=== PATIENT | female | born 1975 ===

== ENCOUNTER 2017-09-21 13:44 | Outpatient (REF) | payer MEDICAID, SELFPAY ==
[2017-09-21 21:54] LABS: Anion Gap 14.4 mmol/L (3-11); BUN 5 mg/dL (7-18); CO2 24.6 mmol/L (21.0-32.0); Calcium 9.3 mg/dL (8.5-10.1); Chloride 103 mmol/L (98-107); Glucose 96 mg/dL (70-100); Potassium 3.5 mmol/L (3.5-5.1); Sodium 142 mmol/L (136-145)
[2017-09-21 22:09] LABS: Bilirubin Negative (Negative); Blood Trace-lysed (Negative); Clarity Clear; Glucose Negative (Negative); Ketones Trace mg/dL (Negative); Leukocyte Esterase Negative (Negative); Nitrite Negative (Negative); Specific Gravity >= 1.030 (1.005-1.025); Urobilinogen 0.2 EU/dL (Up TO 0.2)
[2017-09-21 22:30] LABS: Bacteria Negative HPF (Negative); Epithelial Cells Many HPF (Negative); RBC Negative (0-2); WBC Negative HPF (0-5)
[2017-09-21 22:31] LABS: C & S Indicated? No; Casts Negative LPF (Negative); Mucus Negative (Negative)
== END 2017-09-21 13:45 ==
LOC: NCHCN 13:44
PROVIDERS: PCP Family Medicine; Visit Provider Family Medicine
DX: Z00.01 Encounter for general adult medical examination with abnormal findings (principal); R79.9 Abnormal finding of blood chemistry, unspecified
CPT/HCPCS: 80048; 81003; 81015

== ENCOUNTER 2017-09-23 22:18 | Outpatient (REF) | payer MEDICAID, SELFPAY ==
[2017-09-23 22:46] LABS: Abs Immature Grans 0.03 k/cumm (0.0-0.09); Absolute Basophil Count 0.03 k/cumm (0.0-0.2); Absolute Eosinophil Count 0.14 k/cumm (0.0-0.7); Absolute Lymphocyte Count 2.17 k/cumm (1.2-3.4); Absolute Monocyte Count 0.47 k/cumm (0.11-0.7); Absolute Neutrophil Count 5.19 k/cumm (1.2-6.7); Basophils % 0.4; Eosinophils % 1.7; HCT 37.5 % (36.0-46.0); HGB 12.7 g/dL (12.0-15.5); Immature Grans % 0.4; Mean Corp. HGB Concentration 33.9 g/dL (32.0-36.0); Mean Corpuscular Hemoglobin 34.2 pg (27.0-33.0); Mean Corpuscular Volume 101.1 fL (80-95); Monocytes % 5.9; Neutrophils % 64.6; Platelet Count 225 x1000/uL (130-400); RBC 3.71 m/cumm (4.00-5.20); RBC Distribution Width 13.8 % (11.7-14.6); White Blood Cell Count 8.03 k/cumm (4.4-10.8)
[2017-09-23 23:03] LABS: HCG Quant, Pregnancy 1 mIU/mL (1-3)
== END 2017-09-23 22:19 ==
LOC: NCHCN 22:18
PROVIDERS: PCP Family Medicine; Visit Provider Family Medicine
DX: D75.89 Other specified diseases of blood and blood-forming organs (principal)
CPT/HCPCS: 84702; 85025